=== PATIENT | female | born 1985 | race Caucasian/White ===

== ENCOUNTER 2018-08-03 15:35 | Emergency (ER) | payer OTHER ==
[~2018-08-03] VITALS: Ht 152.4 cm; Wt 63.5 kg
[2018-08-03] MEDS ORDERED: TRAMADOL HCL50 MG PO (15:57)
== END 2018-08-03 22:34 | disposition home or self-care (01) ==
LOC: ER 15:35
DX: R53.1 Weakness (principal); R56.9 Unspecified convulsions; F06.4 Anxiety disorder due to known physiological condition